=== PATIENT | female | born 1940 | race Caucasian/White ===

== ENCOUNTER 2016-10-19 03:10 | Inpatient (IN) ==
[2016-10-16 14:33] LABS: HEMOGLOBIN 12.9 g/dL (12.0-16.0); MCH 30.9 PG (27-31); MCHC 32.3 g/dL (33-37); MCV 95.9 FL (81-99); MPV 9.8 FL (7.4-10.4); RBC 4.17 XMIL (4.2-5.4)
[2016-10-16 17:19] LABS: AGAP 16; BUN 26 mg/dL (8-22); CALCIUM 9.4 mg/dL (8.8-10.2); CHLORIDE 102 mmol/L (98-107); COSMO 282; POTASSIUM 5.8 mmol/L (3.5-5.1); SODIUM 139 mmol/L (136-145); TCO2 21 mmol/L (25-35)
[2016-10-19] MEDS ORDERED: PEPCID ONE (06:45)
[2016-10-19] MEDS ORDERED: REGLAN ONE (06:45)
[2016-10-19] MEDS ORDERED: ENTEREG ONE (06:46)
[2016-10-19] MEDS ORDERED: LR 1,000 ML ONE (06:47)
[2016-10-19] MEDS ORDERED: INVANZ 1 GM/NS 1 GM/50 ML IVPB ONE (06:47)
[2016-10-19 09:32] LABS: URINE MICRO REVIEW NEEDED? NO; URINE SOURCE CATH
[2016-10-19 09:37] LABS: BILIRUBIN URINE NEGATIVE (NEGATIVE); BLOOD URINE SMALL (NEGATIVE); COLOR YELLOW; GLUCOSE URINE NEGATIVE (NEGATIVE); LEUKOCYTES URINE NEGATIVE (NEGATIVE); NITRITE URINE NEGATIVE (NEGATIVE); PH URINE 5.5; PROTEIN URINE TRACE mg/dL (NEGATIVE); SP GRAVITY URINE 1.017; TURBIDITY URINE CLEAR (CLEAR); UROBILINOGEN URINE NORMAL (NORMAL)
[2016-10-19 09:38] LABS: UR EPITHELIAL CELLS <10 /HPF (<10); URINE BACTERIA NEGATIVE /HPF; URINE RBC TNTC /HPF (<10); URINE WBC <10 /HPF (<10)
[2016-10-19] MEDS ORDERED: FENTANYL ONE (10:41)
[2016-10-19] MEDS ORDERED: DIPRIVAN 1% ONE (10:42)
[2016-10-19] MEDS ORDERED: NS 1,000 ML ONE (10:50)
[2016-10-19] MEDS ORDERED: NEOSTIGMINE ONE (10:51)
[2016-10-19] MEDS ORDERED: ZOFRAN ONE (10:51)
[2016-10-19] MEDS ORDERED: ROBINUL ONE (10:52)
[2016-10-19] MEDS ORDERED: OFIRMEV 1000 MG/ISOTONIC SOLN 1,000 MG/100 ML BOTTLE ONE (10:52)
[2016-10-19] MEDS ORDERED: EPHEDRINE ONE (10:52)
[2016-10-19] MEDS ORDERED: QUELICIN (DOSE) ONE (10:52)
[2016-10-19] MEDS ORDERED: DECADRON ONE (10:52)
[2016-10-19] MEDS: MORPHINE ONE ×2 (10:52→11:00)
[2016-10-19] MEDS ORDERED: MORPHINE IV PRN (11:36)
[2016-10-19] MEDS ORDERED: ZOFRAN IV PRN (11:36)
--- NOTE | 2016-10-19 12:03 | OPERATIVE NOTE ---
PROCEDURE DATE : 10/19/2016 NAME OF THE PROCEDURE: Right colectomy with ileocolostomy. SURGEON: Chad Bhatt MD. CLAY PRESS OPERATOR: Efraín Carter RN. PREOPERATIVE DIAGNOSIS: Cancer of the ascending colon. POSTOPERATIVE DIAGNOSIS: Cancer of the ascending colon. DESCRIPTION OF PROCEDURE: After satisfactory general endotracheal anesthesia was achieved, the abdomen was prepped and draped in sterile fashion. A midline incision was made in the area of the old scar. We carried our incision to the subcutaneous tissue through the midline fascia. We took care not to injure the contents of the abdominal cavity. We opened the fascia to the extent of the skin incision. There were some adhesions to the anterior abdominal wall from the omentum. We those with electrocautery. We gained free access to the right side of the abdomen. We then incised the retroperitoneum from caudad to craniad along the white line of Toldt. This allowed us to bring the right colon out of the retroperitoneum. The ink tattoo was identified. The palpable mass was identified in the mid ascending colon. We then the greater omentum from the transverse colon. We could palpate the middle colic vessels and a pulse was noted. We then divided the transverse colon in its mid aspect beside the area of the blood supply to the colon. We then cleaned off the ileum and also used a JOAQUÍN stapler to staple it off, as well. We then scored the peritoneum on the medial aspect. We then used a LigaSure to divide the mesentery all the way to the base of the ileocolic vessels. We divided the mesentery of the transverse colon all the way to the takeoff of the vessels, as well. We then clamped off the ileocolic vessel with a Anjali clamp, divided it, and suture ligated the stump with a 2-0 silk suture ligature. We then handed off the specimen. We approximated the end of the transverse colon to the end of the ileum. We placed a 3-0 silk stitch to keep those approximated together. We isolated the area of the ends of the bowel and then cut off the corner of the small bowel as well as the colon. We introduced the JOAQUÍN 80 blue cartridge into the bowel and did a [id number] stapled anastomosis. We grasped the open ends of the bowel with Allises and then stapled off the open ends with a TA 45 blue cartridge, inverted the staple line with 3-0 silks in a Lembert fashion. We placed a 3-0 silk at the opposite end of the anastomosis, as well. We changed gloves at this point and rid ourselves of the contaminated instruments. We then closed the mesentery with 3-0 silks. No other abnormalities were identified within the abdominal cavity. Hemostasis was satisfactory. We replaced the bowel into the abdominal cavity. We then proceed to close the peritoneum with a 2-0 chromic. We closed the fascia with a running #2 Prolene. We irrigated out the subcutaneous tissue. Hemostasis was satisfactory. We closed the skin with magdiel, and a sterile dressing was applied. She tolerated the procedure satisfactorily, and we were glad to feel pulses within the SMA and its branches. cc: Chad Bhatt MD
[2016-10-19 12:29] LABS: HEMATOCRIT 35.3 % (37.0-47.0); HEMOGLOBIN 11.4 g/dL (12.0-16.0); MCH 31.1 PG (27-31); MCHC 32.3 g/dL (33-37); MCV 96.4 FL (81-99); MPV 9.4 FL (7.4-10.4); RBC 3.66 XMIL (4.2-5.4)
[2016-10-19 12:43] LABS: CALCIUM 8.6 mg/dL (8.8-10.2)
[2016-10-19] MEDS: OFIRMEV 1000 MG/ISOTONIC SOLN 1,000 MG/100 ML BOTTLE IV SCH ×2 (16:53→21:39)
[2016-10-19] MEDS: DIABETA PO SCH (16:53)
[2016-10-19] MEDS: PERIDEX MT SCH (21:39)
[2016-10-19] MEDS: NS 1,000 ML IV SCH (21:40)
[2016-10-20] MEDS: NS 1,000 ML IV SCH ×4 (03:40→21:04)
[2016-10-20] MEDS: OFIRMEV 1000 MG/ISOTONIC SOLN 1,000 MG/100 ML BOTTLE IV SCH ×4 (04:11→21:02)
[2016-10-20] MEDS: DIABETA PO SCH ×2 (09:53→16:40)
[2016-10-20] MEDS: ENTEREG PO SCH ×2 (09:53→21:02)
[2016-10-20] MEDS: ASPIRIN PO SCH (09:53)
[2016-10-20] MEDS: PRILOSEC PO SCH (09:53)
[2016-10-20] MEDS: PRAVACHOL PO SCH (09:53)
[2016-10-20] MEDS: BENICAR PO SCH (09:54)
[2016-10-20] MEDS: LOVENOX SUBQ SCH (09:54)
[2016-10-20] MEDS: PERIDEX MT SCH ×2 (09:54→21:02)
[2016-10-20] MEDS ORDERED: D50W SYRINGE ONE (17:03)
[2016-10-20] MEDS: D50W SYRINGE IV PRN ×2 (17:32→18:50)
[2016-10-21] MEDS: OFIRMEV 1000 MG/ISOTONIC SOLN 1,000 MG/100 ML BOTTLE IV SCH ×3 (03:28→16:59)
[2016-10-21 06:06] LABS: MANUAL DIFF NEEDED? NO
[2016-10-21 06:08] LABS: BASO% 0.3 % (0.0-0.8); EOS# 0.02 X1000 (0.0-0.7); EOS% 0.2 % (0.0-10.0); HEMATOCRIT 31.3 % (37.0-47.0); IMM GRAN# 0.03 X1000 (0.0-0.04); IMM GRAN% 0.3 % (0.0-0.5); LYMPH# 4.31 X1000 (1.2-3.4); LYMPH% 37.6 % (20.5-51.1); MCH 30.9 PG (27-31); MCHC 31.9 g/dL (33-37); MCV 96.6 FL (81-99); MONO# 0.98 X1000 (0.11-0.59); MONO% 8.6 % (1.7-9.3); MPV 9.8 FL (7.4-10.4); PLT 288 X1000 (130-400); RBC 3.24 XMIL (4.2-5.4)
[2016-10-21] MEDS: D50W SYRINGE IV PRN (06:08)
[2016-10-21] MEDS ORDERED: NS 1,000 ML IV SCH (08:15)
[2016-10-21] MEDS: PRILOSEC PO SCH (09:21)
[2016-10-21] MEDS: BENICAR PO SCH (09:21)
[2016-10-21] MEDS: DIABETA PO SCH ×2 (09:22→17:00)
[2016-10-21] MEDS: ASPIRIN PO SCH (09:22)
[2016-10-21] MEDS: ENTEREG PO SCH ×2 (09:23→20:56)
[2016-10-21] MEDS: LOVENOX SUBQ SCH (09:23)
[2016-10-21] MEDS: PRAVACHOL PO SCH (09:23)
[2016-10-21] MEDS: PERIDEX MT SCH ×2 (09:24→20:57)
[2016-10-21] MEDS ORDERED: NORCO-10 PO PRN (19:14)
[2016-10-22] MEDS: PRILOSEC PO SCH (09:40)
[2016-10-22] MEDS: PERIDEX MT SCH ×2 (09:40→20:18)
[2016-10-22] MEDS: ASPIRIN PO SCH (09:40)
[2016-10-22] MEDS: BENICAR PO SCH (09:41)
[2016-10-22] MEDS: LOVENOX SUBQ SCH (09:41)
[2016-10-22] MEDS: ENTEREG PO SCH ×2 (09:41→20:17)
[2016-10-22] MEDS: DIABETA PO SCH ×2 (09:41→18:27)
[2016-10-22] MEDS: PRAVACHOL PO SCH (09:41)
[2016-10-23 06:08] LABS: MANUAL DIFF NEEDED? NO
[2016-10-23 06:23] LABS: BASO% 0.4 % (0.0-0.8); EOS# 0.25 X1000 (0.0-0.7); EOS% 3.6 % (0.0-10.0); HEMATOCRIT 33.1 % (37.0-47.0); HEMOGLOBIN 10.7 g/dL (12.0-16.0); LYMPH# 3.36 X1000 (1.2-3.4); LYMPH% 48.7 % (20.5-51.1); MCH 30.8 PG (27-31); MCHC 32.3 g/dL (33-37); MCV 95.4 FL (81-99); MONO# 0.74 X1000 (0.11-0.59); MONO% 10.7 % (1.7-9.3); MPV 9.7 FL (7.4-10.4); NEUT% 36.6 % (42.2-75.2); PLT 299 X1000 (130-400); RBC 3.47 XMIL (4.2-5.4)
[2016-10-23] MEDS: BENICAR PO SCH (09:53)
[2016-10-23] MEDS: PRAVACHOL PO SCH (09:54)
[2016-10-23] MEDS: PRILOSEC PO SCH (09:54)
[2016-10-23] MEDS: ENTEREG PO SCH (09:54)
[2016-10-23] MEDS: PERIDEX MT SCH ×2 (09:54→09:58)
[2016-10-23] MEDS: ASPIRIN PO SCH (09:54)
[2016-10-23] MEDS: DIABETA PO SCH (09:54)
[2016-10-23] MEDS: LOVENOX SUBQ SCH (09:55)
[2016-10-23 11:58] VITALS: BP 127/73
--- NOTE | 2016-11-09 21:26 | DISCHARGE SUMMARY ---
ADMISSION DATE: 10/19/2016 DISCHARGE DATE: 10/23/2016 PRIMARY DISCHARGE DIAGNOSIS: Cancer of the right colon. PRIMARY PROCEDURE: Open right colectomy with ileocolostomy. HOSPITAL COURSE: This is a 76-year-old lady with peripheral vascular disease who recently underwent SMA, angioplasty and stent. This significantly improved her postprandial pain consistent with chronic mesenteric ischemia. We did this because she had been diagnosed recently with ascending colon cancer and before we plan for operation and resection we felt that we should maximize her arterial flow. So, she was eating well at home. She then underwent her bowel prep and was admitted on 10/19/2016. She underwent the right colectomy on 10/19/2016. Postoperatively she did well. We put her on Lovenox postop, started her on clear liquids on the 2nd postoperative day, removed her Rowley, we decreased her IV rate, we advanced her diet subsequently. By 10/23 she was taking p.o. well. Her bowels had moved. Her wound was fine. It was felt she could be discharged home. Discharge hemoglobin was 10.7. She will return to the office in 6 days for re- evaluation. cc: Chad Bhatt MD
== END 2016-10-23 15:27 | disposition home or self-care (01) ==
LOC: SURHOLD 03:10 → 4N 11:35
PROVIDERS: ADMIT Surgery; ATTEND Surgery